=== PATIENT | female | born 1995 | race Caucasian/White ===

== ENCOUNTER 2021-04-17 22:00 | Emergency (ER) | payer OTHER ==
[~2021-04-17] VITALS: Ht 177.8 cm; Wt 113.6 kg
[2021-04-17] MEDS ORDERED: PERCOCET 325 MG1 TA2 PO (23:12)
[2021-04-17 23:43] VITALS: BP 137/98; PULSE 97; TEMP 98.3
== END 2021-04-17 23:43 | disposition home or self-care (01) ==
LOC: COL.ER 22:00
DX: G89.18 Other acute postprocedural pain (principal); Z98.890 Other specified postprocedural states
CPT/HCPCS: J1200; J1885

== ENCOUNTER 2021-05-28 22:55 | Emergency (ER) | payer OTHER ==
[~2021-05-28] VITALS: Ht 177.8 cm; Wt 113.6 kg
[~2021-05-28 22:55] MED LIST: PERCOCET 325 MG1 TA2 PO
[2021-05-29 01:28] VITALS: BP 155/83; PULSE 85; TEMP 98
== END 2021-05-29 01:28 | disposition home or self-care (01) ==
LOC: COL.ER 22:55
DX: G43.909 Migraine, unspecified, not intractable, without status migrainosus (principal); Z79.891 Long term (current) use of opiate analgesic
CPT/HCPCS: J1200; J1885; J2765; J7030